=== PATIENT | female | born 1935 | race Caucasian/White ===

== ENCOUNTER 2017-09-18 16:12 | Inpatient (IN) ==
[2017-09-18] MEDS ORDERED: GLUCAGON 1 MG VIAL IM PRN (16:16)
[2017-09-18] MEDS ORDERED: MORPHINE 10 MG/1 ML VIAL IV PRN (16:16)
[2017-09-18] MEDS ORDERED: ONDANSETRON 4 MG/2 ML VIAL IV PRN (16:16)
[2017-09-18] MEDS ORDERED: ACETAMINOPHEN 325 MG TABLET PO PRN (16:16)
[2017-09-18] MEDS ORDERED: MAGNESIUM SULF RIDER 4 GM in PREMIX 1 EACH IV PRN (16:16)
[2017-09-18] MEDS ORDERED: DEXTROSE 50% 25 GM/50 ML VIAL IV PRN (16:16)
[2017-09-18 17:42] LABS: Basophils # 0.1 10*3/uL (0.0-0.2); Basophils % 0.8 % (0.0-0.8); Eosinophils # 0.2 10*3/uL (0.0-0.87); Eosinophils % 2.4 % (0.00-10.9); Hematocrit 31.6 VOL% (35.7-47.0); Hemoglobin 9.7 GM/DL (12.0-16.0); Immature Granulocytes % 0.4 %; Immature Granulocytes Absolute 0.03 #; Lymphocytes # 1.9 10*3/uL (1.4-4.0); Lymphocytes % 24.9 % (21.3-54.2); Mean Corpuscular HGB Conc 30.7 GM/DL (32-36); Mean Corpuscular Hemoglobin 27 PG (27-34); Mean Corpuscular Volume 88.8 FL (87-102); Mean Platelet Volume 11.4 FL (9.6-12.0); Monocytes # 0.6 10*3/uL (0.11-0.8); Neutrophils # 4.8 10*3/uL (1.4-7.4); Neutrophils % 63.5 % (38.7-73.9); Platelet Count 256 T/CUMM (130-400); Red Blood Count 3.56 MC/CUMM (3.8-5.5); White Blood Count 7.6 T/CUMM (4-12)
[2017-09-18 18:05] LABS: Bilirubin,Total 0.5 MG/DL (0.2-1.0); Calcium 9.7 MG/DL (8.5-10.1); Magnesium 1.3 MG/DL (1.8-2.4); Osmolality,Calculated 277.4 MOS/KG (273-304); Total Protein 7.2 G/DL (6.4-8.3)
[2017-09-18 18:08] LABS: Troponin I Only 0.021 NG/ML (0.00-0.045)
[2017-09-18] MEDS: INSULIN LISPRO 100 UNIT/ML SUBCUT SCH ×2 (18:11→21:52)
[2017-09-18 19:40] LABS: Troponin I Only 0.024 NG/ML (0.00-0.045)
[2017-09-18] MEDS: ENOXAPARIN 30 MG/0.3 ML SYRINGE SUBCUT SCH (21:45)
[2017-09-18] MEDS: CARVEDILOL 3.125 MG TABLET PO SCH (21:52)
[2017-09-18] MEDS: DOCUSATE SODIUM 100 MG CAPSULE PO SCH (21:52)
[2017-09-18] MEDS: GABAPENTIN 300 MG CAPSULE PO SCH (21:53)
[2017-09-18] MEDS: MAGNESIUM CHLORIDE 64 MG TABLET PO SCH (21:53)
[2017-09-18 23:19] LABS: Troponin I Only 0.034 NG/ML (0.00-0.045)
[2017-09-18] MEDS ORDERED: FUROSEMIDE 40 MG/4 ML VIAL IV ONE (23:24)
[2017-09-18] MEDS ORDERED: FUROSEMIDE 40 MG/4 ML VIAL ONE (23:26)
[2017-09-18] MEDS: MAGNESIUM SULF RIDER 2 GM in PREMIX 1 EACH IV PRN (23:32)
[2017-09-19] MEDS: ALBUTEROL/IPRATROPIUM 3 ML NEB RESP TX SCH ×4 (00:48→19:40)
[2017-09-19 01:31] LABS: Apearance,Urine CLEAR (Clear); Bacteria,Urine Occasional /HPF (Few); Bilirubin,Urine Negative (Negative); Blood, Urine Negative (Negative); Glucose,Urine (UA) Negative (Negative); Ketones,Urine Negative (Negative); Nitrite,Urine Negative (Negative); Protein,Urine Negative; RBC,Urine <1 /HPF (0-4); Urine Color Straw (Yellow); Urine Specific Gravity 1.004 (1.001-1.035); Urine Urobilinogen < 2.0 EU/DL (0.2-1.0); WBC,Urine 1 /HPF (0-6)
[2017-09-19] MEDS: MAGNESIUM SULF RIDER 2 GM in PREMIX 1 EACH IV PRN (01:32)
[2017-09-19] MEDS: LEVOTHYROXINE 75 MCG TABLET PO SCH (05:49)
[2017-09-19 05:53] LABS: Calcium 8.9 MG/DL (8.5-10.1); Osmolality,Calculated 280.4 MOS/KG (273-304); Potassium 3.8 MMOL/L (3.5-5.1); Risk Ratio 3.36; Thyroid Stimulating Hormone 0.975 uIU/ml (0.358-3.74); VLDL CHOLESTEROL 38.8 MG/DL
[2017-09-19] MEDS ORDERED: GLIMEPIRIDE 4 MG TABLET PO SCH (08:00)
[2017-09-19] MEDS: LISINOPRIL 2.5 MG TABLET PO SCH (11:30)
[2017-09-19] MEDS: PARoxetine 10 MG TABLET PO SCH (11:30)
[2017-09-19] MEDS: hydroCHLOROthiazide 12.5 MG CAPSULE PO SCH (11:30)
[2017-09-19] MEDS: amLODIPine 10 MG TABLET PO SCH (11:30)
[2017-09-19] MEDS: ASPIRIN CHEW 81 MG TABLET PO SCH (11:31)
[2017-09-19] MEDS: GABAPENTIN 300 MG CAPSULE PO SCH ×2 (11:32→21:29)
[2017-09-19] MEDS: SPIRONOLACTONE 25 MG TABLET PO SCH (11:32)
[2017-09-19] MEDS: PANTOPRAZOLE 40 MG TABLET PO SCH (11:32)
[2017-09-19] MEDS: INSULIN LISPRO 100 UNIT/ML SUBCUT SCH ×4 (11:33→21:21)
[2017-09-19] MEDS: CARVEDILOL 3.125 MG TABLET PO SCH (11:33)
[2017-09-19] MEDS: DOCUSATE SODIUM 100 MG CAPSULE PO SCH ×2 (11:33→21:31)
[2017-09-19] MEDS: FUROSEMIDE 40 MG/4 ML VIAL IV SCH ×2 (11:34→16:36)
[2017-09-19] MEDS: MAGNESIUM CHLORIDE 64 MG TABLET PO SCH ×2 (11:38→21:20)
[2017-09-19] MEDS: CARVEDILOL 6.25 MG TABLET PO SCH (21:29)
[2017-09-19] MEDS: ENOXAPARIN 30 MG/0.3 ML SYRINGE SUBCUT SCH (21:29)
[2017-09-19] MEDS: ATORVASTATIN 20 MG TABLET PO SCH (21:29)
[2017-09-20] MEDS: ALBUTEROL/IPRATROPIUM 3 ML NEB RESP TX SCH ×4 (00:06→19:53)
[2017-09-20 06:32] LABS: Calcium 8.6 MG/DL (8.5-10.1); Osmolality,Calculated 274.7 MOS/KG (273-304); Potassium 3.7 MMOL/L (3.5-5.1)
[2017-09-20] MEDS: LEVOTHYROXINE 75 MCG TABLET PO SCH (06:42)
[2017-09-20] MEDS: INSULIN LISPRO 100 UNIT/ML SUBCUT SCH ×4 (09:45→21:34)
[2017-09-20] MEDS: amLODIPine 10 MG TABLET PO SCH (09:46)
[2017-09-20] MEDS: hydroCHLOROthiazide 12.5 MG CAPSULE PO SCH (09:46)
[2017-09-20] MEDS: ASPIRIN CHEW 81 MG TABLET PO SCH (09:47)
[2017-09-20] MEDS: GABAPENTIN 300 MG CAPSULE PO SCH ×2 (09:47→21:35)
[2017-09-20] MEDS: LISINOPRIL 2.5 MG TABLET PO SCH (09:47)
[2017-09-20] MEDS: DOCUSATE SODIUM 100 MG CAPSULE PO SCH ×2 (09:47→21:35)
[2017-09-20] MEDS: MAGNESIUM CHLORIDE 64 MG TABLET PO SCH ×2 (09:47→21:35)
[2017-09-20] MEDS: CARVEDILOL 6.25 MG TABLET PO SCH ×2 (09:47→21:35)
[2017-09-20] MEDS: PARoxetine 10 MG TABLET PO SCH (09:47)
[2017-09-20] MEDS: SPIRONOLACTONE 25 MG TABLET PO SCH (09:48)
[2017-09-20] MEDS: GLIMEPIRIDE 2 MG TABLET PO SCH (09:48)
[2017-09-20] MEDS: FUROSEMIDE 40 MG TABLET PO SCH (09:52)
[2017-09-20] MEDS: PANTOPRAZOLE 40 MG TABLET PO SCH (09:52)
[2017-09-20] MEDS: ENOXAPARIN 30 MG/0.3 ML SYRINGE SUBCUT SCH (21:35)
[2017-09-20] MEDS: ATORVASTATIN 20 MG TABLET PO SCH (21:35)
[2017-09-21] MEDS: ALBUTEROL/IPRATROPIUM 3 ML NEB RESP TX SCH ×2 (00:24→07:31)
[2017-09-21 05:41] LABS: Basophils % 0.4 % (0.0-0.8); Eosinophils # 0.5 10*3/uL (0.0-0.87); Eosinophils % 7.5 % (0.00-10.9); Hematocrit 28.7 VOL% (35.7-47.0); Hemoglobin 9.3 GM/DL (12.0-16.0); Immature Granulocytes % 0.1 %; Immature Granulocytes Absolute 0.01 #; Lymphocytes # 1.9 10*3/uL (1.4-4.0); Lymphocytes % 27.2 % (21.3-54.2); Mean Corpuscular HGB Conc 32.4 GM/DL (32-36); Mean Corpuscular Hemoglobin 28 PG (27-34); Mean Corpuscular Volume 84.9 FL (87-102); Mean Platelet Volume 11.4 FL (9.6-12.0); Monocytes # 0.8 10*3/uL (0.11-0.8); Monocytes % 11.6 % (1.7-12.7); Neutrophils # 3.7 10*3/uL (1.4-7.4); Neutrophils % 53.2 % (38.7-73.9); Platelet Count 228 T/CUMM (130-400); Red Blood Count 3.38 MC/CUMM (3.8-5.5); Red Cell Distribution Width 14.5 % (9.3-17.3)
[2017-09-21 06:05] LABS: Calcium 8.3 MG/DL (8.5-10.1); Potassium 4.1 MMOL/L (3.5-5.1)
[2017-09-21 06:07] LABS: Calcium 8.4 MG/DL (8.5-10.1); Magnesium 1.7 MG/DL (1.8-2.4); Potassium 4.1 MMOL/L (3.5-5.1)
[2017-09-21] MEDS: LEVOTHYROXINE 75 MCG TABLET PO SCH (06:41)
[2017-09-21] MEDS: INSULIN LISPRO 100 UNIT/ML SUBCUT SCH ×2 (08:48→12:38)
[2017-09-21] MEDS: PARoxetine 10 MG TABLET PO SCH (08:50)
[2017-09-21] MEDS: ASPIRIN CHEW 81 MG TABLET PO SCH (08:50)
[2017-09-21] MEDS: MAGNESIUM CHLORIDE 64 MG TABLET PO SCH (08:50)
[2017-09-21] MEDS: hydroCHLOROthiazide 12.5 MG CAPSULE PO SCH (08:50)
[2017-09-21] MEDS: LISINOPRIL 2.5 MG TABLET PO SCH (08:50)
[2017-09-21] MEDS: GABAPENTIN 300 MG CAPSULE PO SCH (08:50)
[2017-09-21] MEDS: DOCUSATE SODIUM 100 MG CAPSULE PO SCH (08:50)
[2017-09-21] MEDS: FUROSEMIDE 40 MG TABLET PO SCH (08:50)
[2017-09-21] MEDS: SPIRONOLACTONE 25 MG TABLET PO SCH (08:51)
[2017-09-21] MEDS: GLIMEPIRIDE 2 MG TABLET PO SCH (08:51)
[2017-09-21] MEDS: CARVEDILOL 6.25 MG TABLET PO SCH (08:51)
[2017-09-21] MEDS: amLODIPine 10 MG TABLET PO SCH (08:51)
[2017-09-21] MEDS: PANTOPRAZOLE 40 MG TABLET PO SCH (08:52)
[2017-09-21 12:48] VITALS: BP 135/65
== END 2017-09-21 13:07 | disposition home or self-care (01) | DRG 293 ==
LOC: N.TELEN 16:33
PROVIDERS: ADMIT Family Medicine; ATTEND Family Medicine

== ENCOUNTER 2019-03-25 17:51 | Inpatient (IN) ==
[2019-03-25] MEDS ORDERED: SODIUM CHLORIDE 0.9% 500 ML IV STA (18:16)
[2019-03-25 18:29] LABS: Basophils # 0.1 10*3/uL (0.0-0.2); Basophils % 0.8 % (0.0-0.8); Eosinophils # 0.4 10*3/uL (0.0-0.87); Eosinophils % 4.5 % (0.00-10.9); Hematocrit 33.6 VOL% (35.7-47.0); Hemoglobin 10.7 GM/DL (12.0-16.0); Immature Granulocytes % 0.7 %; Immature Granulocytes Absolute 0.06 #; Lymphocytes # 2.1 10*3/uL (1.4-4.0); Lymphocytes % 23.7 % (21.3-54.2); Mean Corpuscular HGB Conc 31.8 GM/DL (32-36); Mean Corpuscular Volume 89.4 FL (87-102); Mean Platelet Volume 11.7 FL (9.6-12.0); Monocytes % 8.9 % (1.7-12.7); Neutrophils % 61.4 % (38.7-73.9); Platelet Count 193 T/CUMM (130-400); Red Blood Count 3.76 MC/CUMM (3.8-5.5); Red Cell Distribution Width 15.9 % (9.3-17.3); White Blood Count 8.7 T/CUMM (4-12)
[2019-03-25 18:55] LABS: Alanine Aminotransferase 29 U/L (13-56); Albumin 3.3 G/DL (3.4-5.0); Alkaline Phosphatase 110 U/L (45-117); Amylase 47 U/L (25-115); Aspartate Amino Transferase 21 U/L (0-37); Bilirubin,Total < 0.39 MG/DL (0.2-1.0); Blood Urea Nitrogen 36 MG/DL (7-18); Glucose 120 MG/DL (74-106); Osmolality,Calculated 285.5 MOS/KG (273-304); Total Protein 7.1 G/DL (6.4-8.3)
[2019-03-25 18:56] LABS: Troponin I 0.196 NG/ML (0.00-0.045)
[2019-03-25] MEDS ORDERED: MAGNESIUM SULF RIDER 2 GM in PREMIX 1 EACH IV STA (19:09)
[2019-03-25] MEDS ORDERED: ENOXAPARIN 80 MG/0.8 ML SYRINGE SUBCUT STA (19:15)
[2019-03-25] MEDS ORDERED: ACETAMINOPHEN 325 MG TABLET PO PRN ×2 (19:44)
[2019-03-25] MEDS ORDERED: GLUCAGON 1 MG VIAL IM PRN (19:44)
[2019-03-25] MEDS ORDERED: DEXTROSE 50% 25 GM/50 ML VIAL IV PRN (19:44)
[2019-03-25] MEDS ORDERED: MORPHINE 4 MG/1 ML VIAL IV PRN (19:44)
[2019-03-25] MEDS ORDERED: ALBUTEROL 2.5 MG/3 ML NEB RESP TX PRN (19:44)
[2019-03-25] MEDS ORDERED: ONDANSETRON 4 MG/2 ML VIAL IV PRN (19:44)
[2019-03-25] MEDS ORDERED: ALBUTEROL 0.63 MG/3 ML NEB RESP TX PRN (19:44)
[2019-03-25] MEDS ORDERED: ENOXAPARIN 80 MG/0.8 ML SYRINGE SUBCUT ONE (19:54)
[2019-03-25] MEDS ORDERED: MAGNESIUM SULF RIDER 50 ML IV ONE (19:59)
[2019-03-25 20:03] LABS: Apearance,Urine Slightly Hazy (Clear); Bacteria,Urine Many /HPF (Few); Bilirubin,Urine Negative (Negative); Blood, Urine Negative (Negative); Glucose,Urine (UA) Negative (Negative); Hyaline Casts,Urine 3 /LPF (0-3); Ketones,Urine Negative (Negative); Mucus,Urine Occasional /LPF (Occasional); Nitrite,Urine Negative (Negative); Protein,Urine Negative; Squamous Epithelial Cell,Urine Occasional /HPF (0-10); Urine Color Yellow (Yellow); Urine Specific Gravity 1.013 (1.001-1.035); Urine Urobilinogen < 2.0 EU/DL (0.2-1.0); WBC,Urine 2 /HPF (0-6)
[2019-03-25] MEDS ORDERED: hydrALAZINE 20 MG/1 ML VIAL IV PRN (22:26)
[2019-03-25] MEDS: ATORVASTATIN 20 MG TABLET PO SCH (22:46)
[2019-03-25] MEDS: SODIUM CHLORIDE 0.9% 1,000 ML IV SCH (22:49)
[2019-03-25] MEDS: ENOXAPARIN 30 MG/0.3 ML SYRINGE SUBCUT SCH (22:50)
[2019-03-25] MEDS: DOCUSATE SODIUM 100 MG CAPSULE PO SCH (22:50)
[2019-03-26] MEDS: INSULIN REGULAR 100 UNIT/ML SUBCUT SCH ×5 (00:41→23:20)
[2019-03-26 05:28] LABS: Basophils # 0.1 10*3/uL (0.0-0.2); Basophils % 0.7 % (0.0-0.8); Eosinophils # 0.3 10*3/uL (0.0-0.87); Eosinophils % 4.3 % (0.00-10.9); Hematocrit 29.1 VOL% (35.7-47.0); Hemoglobin 9.3 GM/DL (12.0-16.0); Immature Granulocytes % 0.5 %; Immature Granulocytes Absolute 0.04 #; Lymphocytes # 2.1 10*3/uL (1.4-4.0); Lymphocytes % 29.1 % (21.3-54.2); Mean Corpuscular Volume 90.1 FL (87-102); Monocytes % 8.5 % (1.7-12.7); Neutrophils % 56.9 % (38.7-73.9); Platelet Count 160 T/CUMM (130-400); Red Blood Count 3.23 MC/CUMM (3.8-5.5); Red Cell Distribution Width 15.8 % (9.3-17.3); White Blood Count 7.3 T/CUMM (4-12)
[2019-03-26 05:46] LABS: Alanine Aminotransferase 26 U/L (13-56); Albumin 2.8 G/DL (3.4-5.0); Alkaline Phosphatase 89 U/L (45-117); Aspartate Amino Transferase 19 U/L (0-37); Bilirubin,Total < 0.39 MG/DL (0.2-1.0); Blood Urea Nitrogen 31 MG/DL (7-18); Calcium 8.5 MG/DL (8.5-10.1); Glucose 100 MG/DL (74-106); HDL Cholesterol 33 MG/DL (40-60); Osmolality,Calculated 289.1 MOS/KG (273-304); Risk Ratio 5.94; Total Protein 5.7 G/DL (6.4-8.3); Triglycerides 649 MG/DL (2-150); VLDL CHOLESTEROL 129.8 MG/DL
[2019-03-26] MEDS: LEVOTHYROXINE 100 MCG TABLET PO SCH (06:14)
[2019-03-26] MEDS ORDERED: PANTOPRAZOLE 40 MG TABLET PO SCH (09:00)
[2019-03-26] MEDS ORDERED: Fluticasone-Umeclidin-Vilanter [Trelegy Ellipta] INH SCH (09:00)
[2019-03-26 09:19] LABS: Troponin I 0.142 NG/ML (0.00-0.045)
[2019-03-26] MEDS: DOCUSATE SODIUM 100 MG CAPSULE PO SCH ×2 (09:38→21:26)
[2019-03-26] MEDS: CITALOPRAM 20 MG TABLET PO SCH (09:40)
[2019-03-26] MEDS: MAGNESIUM CHLORIDE 64 MG TABLET PO SCH (09:40)
[2019-03-26] MEDS: amLODIPine 5 MG TABLET PO SCH (09:41)
[2019-03-26] MEDS: PANTOPRAZOLE 40 MG TABLET PO SCH (09:41)
[2019-03-26] MEDS: hydroCHLOROthiazide 25 MG TABLET PO SCH (09:41)
[2019-03-26] MEDS: GLIMEPIRIDE 2 MG TABLET PO SCH (09:41)
[2019-03-26] MEDS: MULTIVITAMIN (CENTRUM) TABLET PO SCH (09:41)
[2019-03-26] MEDS: LOSARTAN 50 MG TABLET PO SCH (09:42)
[2019-03-26] MEDS: METOPROLOL TARTRATE 25 MG TABLET PO SCH (09:42)
[2019-03-26] MEDS: ASPIRIN EC 81 MG TABLET PO SCH (10:05)
[2019-03-26] MEDS: SODIUM CHLORIDE 0.9% 1,000 ML IV SCH ×2 (11:44→23:19)
[2019-03-26 12:14] LABS: Troponin I 0.093 NG/ML (0.00-0.045)
[2019-03-26 14:54] LABS: Troponin I 0.118 NG/ML (0.00-0.045)
[2019-03-26 19:14] LABS: Troponin I 0.096 NG/ML (0.00-0.045)
[2019-03-26] MEDS ORDERED: MAGNESIUM CHLORIDE 64 MG TABLET PO SCH (21:00)
[2019-03-26] MEDS: ENOXAPARIN 30 MG/0.3 ML SYRINGE SUBCUT SCH (21:28)
[2019-03-26] MEDS: ATORVASTATIN 20 MG TABLET PO SCH (21:29)
[2019-03-27] MEDS: LEVOTHYROXINE 100 MCG TABLET PO SCH (06:25)
[2019-03-27] MEDS: INSULIN REGULAR 100 UNIT/ML SUBCUT SCH ×2 (06:27→12:00)
[2019-03-27 08:36] LABS: Basophils # 0.1 10*3/uL (0.0-0.2); Basophils % 0.9 % (0.0-0.8); Eosinophils # 0.3 10*3/uL (0.0-0.87); Eosinophils % 4.8 % (0.00-10.9); Hematocrit 31.9 VOL% (35.7-47.0); Hemoglobin 10.1 GM/DL (12.0-16.0); Immature Granulocytes % 0.4 %; Immature Granulocytes Absolute 0.03 #; Lymphocytes # 1.3 10*3/uL (1.4-4.0); Lymphocytes % 19.7 % (21.3-54.2); Mean Corpuscular HGB Conc 31.7 GM/DL (32-36); Mean Corpuscular Volume 88.6 FL (87-102); Mean Platelet Volume 11.2 FL (9.6-12.0); Monocytes % 9.6 % (1.7-12.7); Neutrophils % 64.6 % (38.7-73.9); Platelet Count 163 T/CUMM (130-400); Red Cell Distribution Width 15.8 % (9.3-17.3); White Blood Count 6.7 T/CUMM (4-12)
[2019-03-27 08:55] LABS: Calcium 8.8 MG/DL (8.5-10.1); Osmolality,Calculated 286.1 MOS/KG (273-304)
[2019-03-27] MEDS ORDERED: FENOFIBRATE 145 MG TABLET PO SCH (09:00)
[2019-03-27] MEDS: hydroCHLOROthiazide 25 MG TABLET PO SCH (09:16)
[2019-03-27] MEDS: ASPIRIN EC 81 MG TABLET PO SCH (09:16)
[2019-03-27] MEDS: amLODIPine 5 MG TABLET PO SCH (09:16)
[2019-03-27] MEDS: METOPROLOL TARTRATE 25 MG TABLET PO SCH (09:16)
[2019-03-27] MEDS: MAGNESIUM CHLORIDE 64 MG TABLET PO SCH (09:16)
[2019-03-27] MEDS: LOSARTAN 50 MG TABLET PO SCH (09:16)
[2019-03-27] MEDS: MULTIVITAMIN (CENTRUM) TABLET PO SCH (09:16)
[2019-03-27] MEDS: PANTOPRAZOLE 40 MG TABLET PO SCH (09:16)
[2019-03-27] MEDS: CITALOPRAM 20 MG TABLET PO SCH (09:16)
[2019-03-27] MEDS: GLIMEPIRIDE 2 MG TABLET PO SCH (09:16)
[2019-03-27] MEDS: DOCUSATE SODIUM 100 MG CAPSULE PO SCH (09:17)
[2019-03-27] MEDS ORDERED: amLODIPine 5 MG TABLET PO SCH (10:45)
[2019-03-27 16:19] VITALS: BP 153/68
[2019-03-28] MEDS ORDERED: amLODIPine 10 MG TABLET PO SCH (09:00)
== END 2019-03-27 17:15 | disposition home or self-care (01) | DRG 312 ==
LOC: N.ED 17:51 → N.EDINP 19:22 → N.TELEN 19:38
PROVIDERS: ADMIT Family Medicine; ATTEND Family Medicine

== ENCOUNTER 2019-11-12 06:41 | Inpatient (IN) ==
[2019-11-12] MEDS ORDERED: SODIUM CHLORIDE 0.9% 1,000 ML IV STA (07:04)
[2019-11-12] MEDS ORDERED: ONDANSETRON 4 MG/2 ML VIAL IV STA (07:04)
[2019-11-12 07:59] LABS: Basophils # 0.1 10*3/uL (0.0-0.2); Basophils % 0.5 % (0.0-0.8); Eosinophils # 0.2 10*3/uL (0.0-0.87); Eosinophils % 2.1 % (0.00-10.9); Hematocrit 34.6 VOL% (35.7-47.0); Hemoglobin 10.8 GM/DL (12.0-16.0); Immature Granulocytes % 0.5 %; Immature Granulocytes Absolute 0.05 #; Lymphocytes # 0.9 10*3/uL (1.4-4.0); Lymphocytes % 9.3 % (21.3-54.2); Mean Corpuscular HGB Conc 31.2 GM/DL (32-36); Mean Corpuscular Volume 88.9 FL (87-102); Mean Platelet Volume 11.3 FL (9.6-12.0); Monocytes % 7.6 % (1.7-12.7); Platelet Count 226 T/CUMM (130-400); Red Blood Count 3.89 MC/CUMM (3.8-5.5); Red Cell Distribution Width 14.7 % (9.3-17.3); White Blood Count 9.2 T/CUMM (4-12)
[2019-11-12 08:07] LABS: Apearance,Urine CLEAR (Clear); Bilirubin,Urine Negative (Negative); Blood, Urine Negative (Negative); Glucose,Urine (UA) 50 mg/dL (Negative); Ketones,Urine Negative (Negative); Mucus,Urine Occasional /LPF (Occasional); Nitrite,Urine Negative (Negative); Protein,Urine Negative; RBC,Urine <1 /HPF (0-4); Squamous Epithelial Cell,Urine Occasional /HPF (0-10); Urine Color Straw (Yellow); Urine Specific Gravity 1.009 (1.001-1.035); Urine Urobilinogen < 2.0 EU/DL (0.2-1.0)
[2019-11-12 08:33] LABS: Albumin 3.4 G/DL (3.4-5.0); Bilirubin,Total 0.4 MG/DL (0.2-1.0); Calcium 8.4 MG/DL (8.5-10.1); Total Protein 6.7 G/DL (6.4-8.3)
[2019-11-12] MEDS ORDERED: PIPERACILLIN/TAZOBACTAM 3,375 MG in SODIUM CHLORIDE 0.9% 100 ML IV STA (09:40)
[2019-11-12] MEDS ORDERED: ACETAMINOPHEN 325 MG TABLET PO PRN (10:52)
[2019-11-12] MEDS ORDERED: ONDANSETRON 4 MG/2 ML VIAL IV PRN (10:52)
[2019-11-12] MEDS: SODIUM CHLORIDE 0.9% 1,000 ML IV SCH ×2 (11:10→19:28)
[2019-11-12] MEDS ORDERED: MAGNESIUM SULF RIDER 4 GM in PREMIX 1 EACH IV ONE (20:55)
[2019-11-12] MEDS: DOCUSATE SODIUM 100 MG CAPSULE PO SCH (21:02)
[2019-11-13 06:01] LABS: Basophils % 0.6 % (0.0-0.8); Eosinophils # 0.2 10*3/uL (0.0-0.87); Eosinophils % 3.5 % (0.00-10.9); Hematocrit 32.4 VOL% (35.7-47.0); Hemoglobin 9.9 GM/DL (12.0-16.0); Immature Granulocytes % 0.4 %; Immature Granulocytes Absolute 0.03 #; Lymphocytes # 1.1 10*3/uL (1.4-4.0); Lymphocytes % 16.3 % (21.3-54.2); Mean Corpuscular HGB Conc 30.6 GM/DL (32-36); Monocytes % 8.2 % (1.7-12.7); Platelet Count 240 T/CUMM (130-400); Red Cell Distribution Width 14.7 % (9.3-17.3); White Blood Count 6.9 T/CUMM (4-12)
[2019-11-13 06:33] LABS: Bilirubin,Total 0.6 MG/DL (0.2-1.0); Osmolality,Calculated 281.4 MOS/KG (273-304); Total Protein 6.3 G/DL (6.4-8.3)
[2019-11-13] MEDS: SODIUM CHLORIDE 0.9% 1,000 ML IV SCH ×2 (07:30→15:55)
[2019-11-13] MEDS ORDERED: ALBUTEROL 0.63 MG/3 ML NEB RESP TX PRN (07:36)
[2019-11-13] MEDS ORDERED: GLUCAGON 1 MG VIAL IM PRN (08:05)
[2019-11-13] MEDS ORDERED: DEXTROSE 50% 25 GM/50 ML VIAL IV PRN (08:05)
[2019-11-13] MEDS: FENOFIBRATE 145 MG TABLET PO SCH (08:33)
[2019-11-13] MEDS: MAGNESIUM CHLORIDE 64 MG TABLET PO SCH ×2 (08:33→22:24)
[2019-11-13] MEDS: MULTIVITAMIN (CENTRUM) TABLET PO SCH (08:34)
[2019-11-13] MEDS: DOCUSATE SODIUM 100 MG CAPSULE PO SCH ×2 (08:34→22:24)
[2019-11-13] MEDS: OMEGA 3 ACID ETHYL ESTERS 1 GM CAPSULE PO SCH (08:34)
[2019-11-13] MEDS: LOSARTAN 50 MG TABLET PO SCH ×2 (08:34→22:24)
[2019-11-13] MEDS: ASPIRIN EC 81 MG TABLET PO SCH (08:34)
[2019-11-13] MEDS: CITALOPRAM 20 MG TABLET PO SCH (08:34)
[2019-11-13] MEDS: LEVOTHYROXINE 100 MCG TABLET PO SCH (08:34)
[2019-11-13] MEDS: GLIMEPIRIDE 2 MG TABLET PO SCH (08:34)
[2019-11-13] MEDS: PANTOPRAZOLE 40 MG TABLET PO SCH (08:34)
[2019-11-13] MEDS ORDERED: NF- (Fluticasone-Umeclidin-Vilanter [Trelegy Ellipta] 1 inh) INH SCH (09:00)
[2019-11-13] MEDS ORDERED: hydroCHLOROthiazide 25 MG TABLET PO SCH (09:00)
[2019-11-13] MEDS: INSULIN LISPRO 100 UNIT/ML SUBCUT SCH ×3 (13:32→22:32)
[2019-11-13] MEDS ORDERED: methylPREDNISolone SOD SUC 125 MG/2 ML VIAL ONE (19:47)
[2019-11-13] MEDS ORDERED: LEVALBUTEROL 1.25 MG/3 ML NEB RESP TX ONE (19:47)
[2019-11-13] MEDS ORDERED: MORPHINE 4 MG/1 ML VIAL ONE (19:49)
[2019-11-13] MEDS ORDERED: methylPREDNISolone SOD SUC 125 MG/2 ML VIAL IV ONE (19:50)
[2019-11-13] MEDS ORDERED: MORPHINE 4 MG/1 ML VIAL IV ONE (19:51)
[2019-11-13] MEDS ORDERED: ONDANSETRON 4 MG/2 ML VIAL IV ONE (19:51)
[2019-11-13] MEDS ORDERED: FUROSEMIDE 40 MG/4 ML VIAL IV ONE ×2 (19:54→20:32)
[2019-11-13] MEDS ORDERED: ALBUTEROL/IPRATROPIUM 3 ML NEB RESP TX ONE (19:58)
[2019-11-13] MEDS ORDERED: ETOMIDATE 20 MG/10 ML VIAL IV ONE ×2 (20:16→22:55)
[2019-11-13] MEDS ORDERED: SUCCINYLCHOLINE 200 MG/10 ML VIAL ONE (20:17)
[2019-11-13] MEDS ORDERED: MORPHINE 4 MG/1 ML VIAL IV PRN (20:35)
[2019-11-13 20:36] LABS: ABG Base Excess -15.1 MMOL/L (-2.5-2.5); ABG Oxygen Saturation 93.7 % (95-100); ABG TCO2 18.1 MMOL/L (23-27)
[2019-11-13 20:37] LABS: ABG PCO2 78.2 MM HG (35-48)
[2019-11-13 20:52] LABS: Calcium 8.3 MG/DL (8.5-10.1)
[2019-11-13] MEDS ORDERED: ENOXAPARIN 80 MG/0.8 ML SYRINGE SUBCUT SCH (21:00)
[2019-11-13 21:15] LABS: ABG Base Excess -10.3 MMOL/L (-2.5-2.5); ABG PCO2 55.3 MM HG (35-48); ABG PO2 269.5 MM HG (80-95); ABG TCO2 20.7 MMOL/L (23-27); Allen Test Positive; Pt O2 Delivery Device Ventilator
[2019-11-13 21:25] LABS: ABG PH 7.153 (7.35-7.45)
[2019-11-13] MEDS ORDERED: SODIUM BICARBONATE 50 MEQ/50 ML VIAL IV ONE (21:30)
[2019-11-13] MEDS: MIDAZOLAM 100 MG in SODIUM CHLORIDE 0.9% 80 ML IV PRN (21:33)
[2019-11-13] MEDS ORDERED: ALBUTEROL/IPRATROPIUM 3 ML NEB RESP TX SCH (22:00)
[2019-11-13] MEDS: ATORVASTATIN 20 MG TABLET PO SCH (22:24)
[2019-11-13] MEDS: CLOPIDOGREL 75 MG TABLET PO SCH (22:24)
[2019-11-13] MEDS ORDERED: SUCCINYLCHOLINE 200 MG/10 ML VIAL IV ONE (22:55)
[2019-11-13 22:58] LABS: CKMB % 3.6 %; Troponin I 0.784 NG/ML (0.00-0.045)
[2019-11-14 00:01] LABS: CKMB % 7.2 %
[2019-11-14 00:02] LABS: Troponin I 4.89 NG/ML (0.00-0.045)
[2019-11-14] MEDS: SODIUM CHLORIDE 0.9% 1,000 ML IV SCH ×2 (00:50→08:02)
[2019-11-14 03:18] LABS: ABG Base Excess -2.4 MMOL/L (-2.5-2.5); ABG HCO3 22.5 MMOL/L (20-26); ABG Oxygen Saturation 99.8 % (95-100); ABG PCO2 40.8 MM HG (35-48); ABG PH 7.358 (7.35-7.45); ABG TCO2 20.9 MMOL/L (23-27); Allen Test Positive; Pt O2 Delivery Device Ventilator
[2019-11-14 06:10] LABS: Troponin I 25.5 NG/ML (0.00-0.045)
[2019-11-14] MEDS: INSULIN LISPRO 100 UNIT/ML SUBCUT SCH ×4 (08:47→17:06)
[2019-11-14] MEDS: LOSARTAN 50 MG TABLET PO SCH (08:50)
[2019-11-14] MEDS: MULTIVITAMIN (CENTRUM) TABLET PO SCH (08:50)
[2019-11-14] MEDS: PANTOPRAZOLE 40 MG TABLET PO SCH (08:50)
[2019-11-14] MEDS: ASPIRIN EC 81 MG TABLET PO SCH (08:50)
[2019-11-14] MEDS: MAGNESIUM CHLORIDE 64 MG TABLET PO SCH ×2 (08:50→20:42)
[2019-11-14] MEDS: LEVOTHYROXINE 100 MCG TABLET PO SCH (08:50)
[2019-11-14] MEDS: FENOFIBRATE 145 MG TABLET PO SCH (08:50)
[2019-11-14] MEDS: GLIMEPIRIDE 2 MG TABLET PO SCH (08:51)
[2019-11-14] MEDS: CITALOPRAM 20 MG TABLET PO SCH (08:51)
[2019-11-14] MEDS: DOCUSATE SODIUM 100 MG CAPSULE PO SCH (08:52)
[2019-11-14] MEDS: OMEGA 3 ACID ETHYL ESTERS 1 GM CAPSULE PO SCH (08:52)
[2019-11-14] MEDS ORDERED: FUROSEMIDE 40 MG/4 ML VIAL IV SCH (09:00)
[2019-11-14] MEDS: methylPREDNISolone SOD SUC 40 MG/1 ML VIAL IV SCH ×2 (10:09→20:41)
[2019-11-14 10:48] LABS: CKMB % 8.1 %
[2019-11-14 10:51] LABS: Troponin I 26.9 NG/ML (0.00-0.045)
[2019-11-14] MEDS: MIDAZOLAM 100 MG in SODIUM CHLORIDE 0.9% 80 ML IV PRN (11:52)
[2019-11-14 12:20] LABS: CKMB % 7.6 %
[2019-11-14 12:24] LABS: Troponin I 33.7 NG/ML (0.00-0.045)
[2019-11-14] MEDS: carvediloL 3.125 MG TABLET PO SCH ×2 (12:36→20:42)
[2019-11-14 14:59] LABS: CKMB % 6.2 %
[2019-11-14 15:03] LABS: Troponin I 27.7 NG/ML (0.00-0.045)
[2019-11-14] MEDS: ENOXAPARIN 80 MG/0.8 ML SYRINGE SUBCUT SCH (20:41)
[2019-11-14] MEDS: CLOPIDOGREL 75 MG TABLET PO SCH (20:42)
[2019-11-14] MEDS: DOCUSATE SODIUM 100 MG/10 ML UDCUP PO SCH (20:42)
[2019-11-14] MEDS: ATORVASTATIN 20 MG TABLET PO SCH (20:42)
[2019-11-15] MEDS: INSULIN LISPRO 100 UNIT/ML SUBCUT SCH ×4 (00:03→18:12)
[2019-11-15 03:55] LABS: ABG Base Excess 0.2 MMOL/L (-2.5-2.5); ABG HCO3 24.7 MMOL/L (20-26); ABG Oxygen Saturation 99.4 % (95-100); ABG PCO2 34.9 MM HG (35-48); ABG PH 7.444 (7.35-7.45); ABG TCO2 21.7 MMOL/L (23-27); Allen Test Positive; Pt O2 Delivery Device Ventilator
[2019-11-15 05:02] LABS: Basophils % 0.1 % (0.0-0.8); Hematocrit 30.9 VOL% (35.7-47.0); Hemoglobin 9.7 GM/DL (12.0-16.0); Immature Granulocytes % 0.5 %; Immature Granulocytes Absolute 0.06 #; Lymphocytes # 0.8 10*3/uL (1.4-4.0); Lymphocytes % 6.7 % (21.3-54.2); Mean Corpuscular HGB Conc 31.4 GM/DL (32-36); Mean Corpuscular Volume 88.3 FL (87-102); Mean Platelet Volume 11.8 FL (9.6-12.0); Monocytes % 4.1 % (1.7-12.7); Neutrophils % 88.6 % (38.7-73.9); Platelet Count 261 T/CUMM (130-400); Red Cell Distribution Width 14.9 % (9.3-17.3); White Blood Count 11.6 T/CUMM (4-12)
[2019-11-15 05:25] LABS: Calcium 8.7 MG/DL (8.5-10.1); Osmolality,Calculated 289.5 MOS/KG (273-304)
[2019-11-15 05:32] LABS: CKMB % 3.3 %
[2019-11-15 05:53] LABS: Risk Ratio 4.02; VLDL CHOLESTEROL 61.4 MG/DL
[2019-11-15 06:25] LABS: Troponin I 14.1 NG/ML (0.00-0.045)
[2019-11-15] MEDS ORDERED: LOSARTAN 50 MG TABLET PO SCH (09:00)
[2019-11-15] MEDS: DOCUSATE SODIUM 100 MG/10 ML UDCUP PO SCH ×2 (09:05→20:07)
[2019-11-15] MEDS: methylPREDNISolone SOD SUC 40 MG/1 ML VIAL IV SCH ×2 (09:05→20:08)
[2019-11-15] MEDS: PANTOPRAZOLE 40 MG VIAL IV SCH (09:05)
[2019-11-15] MEDS: FUROSEMIDE 40 MG/4 ML VIAL IV SCH (09:06)
[2019-11-15] MEDS: GLIMEPIRIDE 2 MG TABLET PO SCH (09:07)
[2019-11-15] MEDS: FENOFIBRATE 145 MG TABLET PO SCH (09:08)
[2019-11-15] MEDS: MAGNESIUM CHLORIDE 64 MG TABLET PO SCH ×2 (09:08→20:07)
[2019-11-15] MEDS: CITALOPRAM 20 MG TABLET PO SCH (09:08)
[2019-11-15] MEDS: carvediloL 3.125 MG TABLET PO SCH ×2 (09:09→20:08)
[2019-11-15] MEDS: LEVOTHYROXINE 100 MCG TABLET PO SCH (09:09)
[2019-11-15] MEDS: ASPIRIN EC 81 MG TABLET PO SCH (09:09)
[2019-11-15] MEDS: OMEGA 3 ACID ETHYL ESTERS 1 GM CAPSULE PO SCH (09:10)
[2019-11-15] MEDS: MULTIVITAMIN (CENTRUM) TABLET PO SCH (09:10)
[2019-11-15] MEDS: SODIUM CHLORIDE 0.45% 1,000 ML IV SCH (09:11)
[2019-11-15] MEDS: MIDAZOLAM 100 MG in SODIUM CHLORIDE 0.9% 80 ML IV PRN (10:43)
[2019-11-15] MEDS: ENOXAPARIN 80 MG/0.8 ML SYRINGE SUBCUT SCH (20:08)
[2019-11-15] MEDS: CLOPIDOGREL 75 MG TABLET PO SCH (20:09)
[2019-11-15] MEDS: ATORVASTATIN 20 MG TABLET PO SCH (20:12)
[2019-11-16] MEDS: INSULIN LISPRO 100 UNIT/ML SUBCUT SCH ×4 (00:53→18:18)
[2019-11-16 03:46] LABS: ABG Base Excess 1.5 MMOL/L (-2.5-2.5); ABG HCO3 25.1 MMOL/L (20-26); ABG Oxygen Saturation 97.5 % (95-100); ABG PCO2 35.8 MM HG (35-48); ABG PH 7.464 (7.35-7.45); ABG PO2 112.2 MM HG (80-95); ABG TCO2 26.2 MMOL/L (23-27); Allen Test Positive; Pt O2 Delivery Device Ventilator
[2019-11-16 05:04] LABS: Basophils % 0.1 % (0.0-0.8); Hematocrit 29.1 VOL% (35.7-47.0); Hemoglobin 9.6 GM/DL (12.0-16.0); Immature Granulocytes % 0.8 %; Immature Granulocytes Absolute 0.09 #; Lymphocytes % 8.6 % (21.3-54.2); Mean Corpuscular Volume 86.4 FL (87-102); Mean Platelet Volume 11.9 FL (9.6-12.0); Monocytes % 6.1 % (1.7-12.7); Neutrophils % 84.4 % (38.7-73.9); Platelet Count 244 T/CUMM (130-400); Red Blood Count 3.37 MC/CUMM (3.8-5.5); Red Cell Distribution Width 14.6 % (9.3-17.3); White Blood Count 11.8 T/CUMM (4-12)
[2019-11-16] MEDS: SODIUM CHLORIDE 0.45% 1,000 ML IV SCH (05:26)
[2019-11-16 05:58] LABS: Calcium 9.2 MG/DL (8.5-10.1); Osmolality,Calculated 284.2 MOS/KG (273-304)
[2019-11-16] MEDS: MULTIVITAMIN (CENTRUM) TABLET PO SCH (09:33)
[2019-11-16] MEDS: ASPIRIN EC 81 MG TABLET PO SCH (09:33)
[2019-11-16] MEDS: OMEGA 3 ACID ETHYL ESTERS 1 GM CAPSULE PO SCH (09:33)
[2019-11-16] MEDS: carvediloL 3.125 MG TABLET PO SCH ×3 (09:33→20:46)
[2019-11-16] MEDS: LEVOTHYROXINE 100 MCG TABLET PO SCH (09:34)
[2019-11-16] MEDS: MAGNESIUM CHLORIDE 64 MG TABLET PO SCH ×2 (09:34→20:37)
[2019-11-16] MEDS: GLIMEPIRIDE 2 MG TABLET PO SCH (09:34)
[2019-11-16] MEDS: CITALOPRAM 20 MG TABLET PO SCH (09:34)
[2019-11-16] MEDS: FUROSEMIDE 40 MG/4 ML VIAL IV SCH (09:35)
[2019-11-16] MEDS: DOCUSATE SODIUM 100 MG/10 ML UDCUP PO SCH ×2 (09:35→20:37)
[2019-11-16] MEDS: PANTOPRAZOLE 40 MG VIAL IV SCH (09:35)
[2019-11-16] MEDS: FENOFIBRATE 145 MG TABLET PO SCH (09:36)
[2019-11-16] MEDS: methylPREDNISolone SOD SUC 40 MG/1 ML VIAL IV SCH ×2 (09:36→20:37)
[2019-11-16] MEDS: metroNIDAZOLE INJ 500 MG in PREMIX 1 EACH IV SCH (15:30)
[2019-11-16] MEDS: LEVOFLOXACIN INJ 500 MG in PREMIX 1 EACH IV SCH (15:32)
[2019-11-16] MEDS: ENOXAPARIN 80 MG/0.8 ML SYRINGE SUBCUT SCH (20:37)
[2019-11-16] MEDS: ATORVASTATIN 20 MG TABLET PO SCH (20:37)
[2019-11-16] MEDS: CLOPIDOGREL 75 MG TABLET PO SCH (20:38)
[2019-11-17] MEDS: metroNIDAZOLE INJ 500 MG in PREMIX 1 EACH IV SCH ×2 (00:16→12:49)
[2019-11-17] MEDS: INSULIN LISPRO 100 UNIT/ML SUBCUT SCH ×4 (00:17→18:28)
[2019-11-17] MEDS: SODIUM CHLORIDE 0.45% 1,000 ML IV SCH ×2 (02:14)
[2019-11-17 05:25] LABS: Basophils % 0.1 % (0.0-0.8); Hematocrit 34.2 VOL% (35.7-47.0); Hemoglobin 10.8 GM/DL (12.0-16.0); Immature Granulocytes % 0.5 %; Immature Granulocytes Absolute 0.06 #; Lymphocytes # 1.2 10*3/uL (1.4-4.0); Lymphocytes % 9.6 % (21.3-54.2); Mean Corpuscular HGB Conc 31.6 GM/DL (32-36); Mean Corpuscular Volume 87.5 FL (87-102); Mean Platelet Volume 11.7 FL (9.6-12.0); Monocytes % 6.8 % (1.7-12.7); Platelet Count 275 T/CUMM (130-400); Red Blood Count 3.91 MC/CUMM (3.8-5.5); Red Cell Distribution Width 14.4 % (9.3-17.3)
[2019-11-17 05:39] LABS: Calcium 9.1 MG/DL (8.5-10.1); Osmolality,Calculated 285.4 MOS/KG (273-304)
[2019-11-17] MEDS: PANTOPRAZOLE 40 MG VIAL IV SCH (09:49)
[2019-11-17] MEDS: FUROSEMIDE 40 MG/4 ML VIAL IV SCH (09:49)
[2019-11-17] MEDS: methylPREDNISolone SOD SUC 40 MG/1 ML VIAL IV SCH ×2 (09:49→20:48)
[2019-11-17] MEDS: GLIMEPIRIDE 2 MG TABLET PO SCH (09:50)
[2019-11-17] MEDS: DOCUSATE SODIUM 100 MG/10 ML UDCUP PO SCH ×2 (09:50→20:48)
[2019-11-17] MEDS: MAGNESIUM CHLORIDE 64 MG TABLET PO SCH ×2 (09:50→20:48)
[2019-11-17] MEDS: ASPIRIN EC 81 MG TABLET PO SCH (09:50)
[2019-11-17] MEDS: MULTIVITAMIN (CENTRUM) TABLET PO SCH (09:50)
[2019-11-17] MEDS: FENOFIBRATE 145 MG TABLET PO SCH (09:50)
[2019-11-17] MEDS: OMEGA 3 ACID ETHYL ESTERS 1 GM CAPSULE PO SCH (09:50)
[2019-11-17] MEDS: carvediloL 3.125 MG TABLET PO SCH ×2 (09:52→20:55)
[2019-11-17] MEDS: LEVOTHYROXINE 100 MCG TABLET PO SCH (09:52)
[2019-11-17] MEDS: CITALOPRAM 20 MG TABLET PO SCH (09:53)
[2019-11-17] MEDS: CLOPIDOGREL 75 MG TABLET PO SCH (20:48)
[2019-11-17] MEDS: ATORVASTATIN 20 MG TABLET PO SCH (20:48)
[2019-11-17] MEDS: ENOXAPARIN 80 MG/0.8 ML SYRINGE SUBCUT SCH (20:49)
[2019-11-18] MEDS: INSULIN LISPRO 100 UNIT/ML SUBCUT SCH ×5 (00:16→21:59)
[2019-11-18] MEDS: SODIUM CHLORIDE 0.45% 1,000 ML IV SCH (00:16)
[2019-11-18] MEDS: metroNIDAZOLE INJ 500 MG in PREMIX 1 EACH IV SCH ×2 (00:16→12:10)
[2019-11-18 04:47] LABS: Basophils % 0.1 % (0.0-0.8); Eosinophils % 0.1 % (0.00-10.9); Hematocrit 33.1 VOL% (35.7-47.0); Hemoglobin 10.5 GM/DL (12.0-16.0); Immature Granulocytes % 0.8 %; Immature Granulocytes Absolute 0.07 #; Lymphocytes # 1.2 10*3/uL (1.4-4.0); Lymphocytes % 13.2 % (21.3-54.2); Mean Corpuscular HGB Conc 31.7 GM/DL (32-36); Mean Corpuscular Volume 86.4 FL (87-102); Mean Platelet Volume 11.5 FL (9.6-12.0); Monocytes % 6.3 % (1.7-12.7); Neutrophils % 79.5 % (38.7-73.9); Platelet Count 274 T/CUMM (130-400); Red Blood Count 3.83 MC/CUMM (3.8-5.5); Red Cell Distribution Width 14.3 % (9.3-17.3); White Blood Count 8.9 T/CUMM (4-12)
[2019-11-18 05:17] LABS: Calcium 8.9 MG/DL (8.5-10.1); Osmolality,Calculated 284.7 MOS/KG (273-304)
[2019-11-18] MEDS ORDERED: SODIUM CHLORIDE 0.9% 1,000 ML IV SCH (07:30)
[2019-11-18] MEDS ORDERED: LIDOCAINE 1%/EPI INJ 20 ML VIAL ONE (07:35)
[2019-11-18] MEDS ORDERED: HEPARIN/NACL 0.9% 2 UNITS/ML 1,000 ML IV ONE (07:35)
[2019-11-18] MEDS ORDERED: DIAZEPAM 5 MG TABLET PO ONE (07:36)
[2019-11-18] MEDS ORDERED: diphenhydrAMINE CAP 50 MG CAPSULE PO ONE (07:36)
[2019-11-18] MEDS ORDERED: MAGNESIUM SULF RIDER 2 GM in PREMIX 1 EACH IV PRN (07:39)
[2019-11-18] MEDS ORDERED: POTASSIUM CHLORIDE RIDER 10 MEQ in PREMIX 1 EACH IV PRN (07:39)
[2019-11-18] MEDS ORDERED: fentaNYL 100 MCG/2 ML VIAL ONE (07:43)
[2019-11-18] MEDS ORDERED: DEXTROSE 10% 250 ML BAG IV PRN (08:02)
[2019-11-18] MEDS ORDERED: MIDAZOLAM 2 MG/2 ML VIAL ONE (08:11)
[2019-11-18] MEDS ORDERED: ENOXAPARIN 30 MG/0.3 ML SYRINGE ONE (08:24)
[2019-11-18] MEDS ORDERED: TICAGRELOR 90 MG TABLET ONE (08:35)
[2019-11-18] MEDS ORDERED: HYDROmorphone 2 MG/1 ML VIAL IV PRN (09:03)
[2019-11-18] MEDS: DOCUSATE SODIUM 100 MG/10 ML UDCUP PO SCH ×3 (10:12→22:08)
[2019-11-18] MEDS: LEVOFLOXACIN INJ 500 MG in PREMIX 1 EACH IV SCH (10:27)
[2019-11-18] MEDS: methylPREDNISolone SOD SUC 40 MG/1 ML VIAL IV SCH ×2 (10:32→22:01)
[2019-11-18] MEDS: PANTOPRAZOLE 40 MG VIAL IV SCH (10:32)
[2019-11-18] MEDS: MAGNESIUM CHLORIDE 64 MG TABLET PO SCH ×2 (10:34→21:57)
[2019-11-18] MEDS: FENOFIBRATE 145 MG TABLET PO SCH (10:35)
[2019-11-18] MEDS: ASPIRIN EC 81 MG TABLET PO SCH (10:35)
[2019-11-18] MEDS: CITALOPRAM 20 MG TABLET PO SCH (10:35)
[2019-11-18] MEDS: GLIMEPIRIDE 2 MG TABLET PO SCH (10:35)
[2019-11-18] MEDS: MULTIVITAMIN (CENTRUM) TABLET PO SCH (10:35)
[2019-11-18] MEDS: carvediloL 3.125 MG TABLET PO SCH ×2 (10:35→21:58)
[2019-11-18] MEDS: OMEGA 3 ACID ETHYL ESTERS 1 GM CAPSULE PO SCH (10:35)
[2019-11-18] MEDS: LEVOTHYROXINE 100 MCG TABLET PO SCH (10:35)
[2019-11-18] MEDS: ATORVASTATIN 20 MG TABLET PO SCH (21:58)
[2019-11-18] MEDS: TICAGRELOR 90 MG TABLET PO SCH (21:59)
[2019-11-19] MEDS: metroNIDAZOLE INJ 500 MG in PREMIX 1 EACH IV SCH ×2 (00:43→12:10)
[2019-11-19 04:45] LABS: Hematocrit 31.3 VOL% (35.7-47.0); Hemoglobin 10.1 GM/DL (12.0-16.0); Immature Granulocytes % 1.2 %; Lymphocytes # 0.8 10*3/uL (1.4-4.0); Lymphocytes % 9.6 % (21.3-54.2); Mean Corpuscular HGB Conc 32.3 GM/DL (32-36); Mean Corpuscular Volume 85.5 FL (87-102); Mean Platelet Volume 11.9 FL (9.6-12.0); Monocytes % 5.1 % (1.7-12.7); Neutrophils % 84.1 % (38.7-73.9); Platelet Count 265 T/CUMM (130-400); Red Blood Count 3.66 MC/CUMM (3.8-5.5); Red Cell Distribution Width 14.3 % (9.3-17.3); White Blood Count 8.1 T/CUMM (4-12)
[2019-11-19 05:20] LABS: Calcium 8.2 MG/DL (8.5-10.1); Osmolality,Calculated 292.2 MOS/KG (273-304)
[2019-11-19] MEDS: SODIUM CHLORIDE 0.45% 1,000 ML IV SCH ×2 (05:44)
[2019-11-19] MEDS ORDERED: SODIUM CHLORIDE 0.9% 1,000 ML IV SCH (08:00)
[2019-11-19] MEDS: PANTOPRAZOLE 40 MG VIAL IV SCH (08:18)
[2019-11-19] MEDS: methylPREDNISolone SOD SUC 40 MG/1 ML VIAL IV SCH ×2 (08:18→21:33)
[2019-11-19] MEDS: INSULIN LISPRO 100 UNIT/ML SUBCUT SCH ×4 (08:19→21:32)
[2019-11-19] MEDS: ASPIRIN EC 81 MG TABLET PO SCH (08:20)
[2019-11-19] MEDS: MAGNESIUM CHLORIDE 64 MG TABLET PO SCH ×2 (08:20→21:32)
[2019-11-19] MEDS: OMEGA 3 ACID ETHYL ESTERS 1 GM CAPSULE PO SCH (08:20)
[2019-11-19] MEDS: LEVOTHYROXINE 100 MCG TABLET PO SCH (08:21)
[2019-11-19] MEDS: CITALOPRAM 20 MG TABLET PO SCH (08:21)
[2019-11-19] MEDS: GLIMEPIRIDE 2 MG TABLET PO SCH (08:21)
[2019-11-19] MEDS: TICAGRELOR 90 MG TABLET PO SCH ×2 (08:21→21:33)
[2019-11-19] MEDS: FENOFIBRATE 145 MG TABLET PO SCH (08:21)
[2019-11-19] MEDS: DOCUSATE SODIUM 100 MG/10 ML UDCUP PO SCH ×3 (08:22→21:32)
[2019-11-19] MEDS: carvediloL 3.125 MG TABLET PO SCH ×2 (08:22→21:33)
[2019-11-19] MEDS: MULTIVITAMIN (CENTRUM) TABLET PO SCH (08:22)
[2019-11-19] MEDS: ALBUTEROL 2.5 MG/3 ML NEB RESP TX SCH (20:06)
[2019-11-19] MEDS: ATORVASTATIN 20 MG TABLET PO SCH (21:33)
[2019-11-20] MEDS: metroNIDAZOLE INJ 500 MG in PREMIX 1 EACH IV SCH (00:28)
[2019-11-20] MEDS: ALBUTEROL 2.5 MG/3 ML NEB RESP TX SCH ×2 (01:09→07:40)
[2019-11-20 03:43] LABS: Basophils % 0.1 % (0.0-0.8); Eosinophils % 0.1 % (0.00-10.9); Hematocrit 30.4 VOL% (35.7-47.0); Hemoglobin 9.5 GM/DL (12.0-16.0); Immature Granulocytes % 1.4 %; Immature Granulocytes Absolute 0.11 #; Lymphocytes # 0.9 10*3/uL (1.4-4.0); Lymphocytes % 11.2 % (21.3-54.2); Mean Corpuscular HGB Conc 31.3 GM/DL (32-36); Mean Corpuscular Volume 87.6 FL (87-102); Mean Platelet Volume 11.4 FL (9.6-12.0); Monocytes % 4.3 % (1.7-12.7); Neutrophils % 82.9 % (38.7-73.9); Platelet Count 255 T/CUMM (130-400); Red Blood Count 3.47 MC/CUMM (3.8-5.5); Red Cell Distribution Width 14.2 % (9.3-17.3); White Blood Count 7.9 T/CUMM (4-12)
[2019-11-20 03:59] LABS: Calcium 7.8 MG/DL (8.5-10.1); Osmolality,Calculated 291.1 MOS/KG (273-304)
[2019-11-20 08:40] VITALS: BP 141/84
[2019-11-20] MEDS: INSULIN LISPRO 100 UNIT/ML SUBCUT SCH (08:49)
[2019-11-20] MEDS: OMEGA 3 ACID ETHYL ESTERS 1 GM CAPSULE PO SCH (08:50)
[2019-11-20] MEDS: GLIMEPIRIDE 2 MG TABLET PO SCH (08:50)
[2019-11-20] MEDS: MAGNESIUM CHLORIDE 64 MG TABLET PO SCH (08:50)
[2019-11-20] MEDS: LEVOTHYROXINE 100 MCG TABLET PO SCH (08:50)
[2019-11-20] MEDS: carvediloL 3.125 MG TABLET PO SCH (08:50)
[2019-11-20] MEDS: MULTIVITAMIN (CENTRUM) TABLET PO SCH (08:50)
[2019-11-20] MEDS: CITALOPRAM 20 MG TABLET PO SCH (08:50)
[2019-11-20] MEDS: FENOFIBRATE 145 MG TABLET PO SCH (08:50)
[2019-11-20] MEDS: PANTOPRAZOLE 40 MG VIAL IV SCH (08:51)
[2019-11-20] MEDS: methylPREDNISolone SOD SUC 40 MG/1 ML VIAL IV SCH (08:51)
[2019-11-20] MEDS: TICAGRELOR 90 MG TABLET PO SCH (08:51)
[2019-11-20] MEDS: ASPIRIN EC 81 MG TABLET PO SCH (08:51)
[2019-11-20] MEDS: DOCUSATE SODIUM 100 MG/10 ML UDCUP PO SCH (08:57)
== END 2019-11-20 11:10 | disposition home health service (06) | DRG 981 ==
LOC: EDUNIT# → EDBD → N.ED 06:41 → N.EDINP 09:41 → N.4E 10:09 → N.CC 11-13 20:14 → N.TELES 11-19 11:00
PROVIDERS: ADMIT Family Medicine; ATTEND Family Medicine

== ENCOUNTER 2020-06-15 06:52 | Observation (INO) ==
[2020-06-15 07:22] LABS: Basophils # 0.1 10*3/uL (0.0-0.2); Basophils % 0.7 % (0.0-0.8); Eosinophils # 0.2 10*3/uL (0.0-0.87); Eosinophils % 3.5 % (0.00-10.9); Hematocrit 30.3 VOL% (35.7-47.0); Hemoglobin 10.1 GM/DL (12.0-16.0); Immature Granulocytes % 0.4 %; Immature Granulocytes Absolute 0.03 #; Lymphocytes # 1.4 10*3/uL (1.4-4.0); Lymphocytes % 20.9 % (21.3-54.2); Mean Corpuscular HGB Conc 33.3 GM/DL (32-36); Mean Corpuscular Volume 94.1 FL (87-102); Mean Platelet Volume 12.1 FL (9.6-12.0); Monocytes % 10.7 % (1.7-12.7); Neutrophils % 63.8 % (38.7-73.9); Platelet Count 178 T/CUMM (130-400); Red Blood Count 3.22 MC/CUMM (3.8-5.5); Red Cell Distribution Width 16.1 % (9.3-17.3); White Blood Count 6.8 T/CUMM (4-12)
[2020-06-15] MEDS ORDERED: NITROGLYCERIN 2% OINT 1 INCH/GM PACK TOP STA (07:28)
[2020-06-15] MEDS ORDERED: ONDANSETRON 4 MG/2 ML VIAL IV STA (07:40)
[2020-06-15] MEDS ORDERED: MORPHINE 4 MG/1 ML VIAL IV STA (07:40)
[2020-06-15 07:49] LABS: Albumin 3.9 G/DL (3.4-5.0); Bilirubin,Total 0.4 MG/DL (0.2-1.0); Calcium 8.4 MG/DL (8.5-10.1); Osmolality,Calculated 283.5 MOS/KG (273-304); Total Protein 7.2 G/DL (6.4-8.3)
[2020-06-15 08:26] LABS: INR 1.1; PT Patient Result 11.3 SECS (9.8-11.9); Partial Thromboplastin Time 25.9 SECS (23.9-33.8)
[2020-06-15] MEDS ORDERED: ACETAMINOPHEN 325 MG TABLET PO PRN (09:50)
[2020-06-15] MEDS ORDERED: SODIUM CHLORIDE 0.9% 1,000 ML IV SCH (09:50)
[2020-06-15] MEDS ORDERED: GLUCAGON 1 MG VIAL IM PRN (09:50)
[2020-06-15] MEDS ORDERED: DEXTROSE 50% 25 GM/50 ML VIAL IV PRN (09:50)
[2020-06-15] MEDS ORDERED: ONDANSETRON 4 MG/2 ML VIAL IV PRN (09:50)
[2020-06-15] MEDS ORDERED: INFLUENZA VIRUS VACCINE 0.5 ML SYRINGE IM ONE (10:59)
[2020-06-15] MEDS: DOCUSATE SODIUM 100 MG CAPSULE PO SCH ×2 (11:01→21:27)
[2020-06-15] MEDS: ENOXAPARIN 30 MG/0.3 ML SYRINGE SUBCUT SCH (11:54)
[2020-06-15] MEDS: PANTOPRAZOLE 40 MG TABLET PO SCH (11:54)
[2020-06-15] MEDS: INSULIN LISPRO 100 UNIT/ML SUBCUT SCH ×3 (13:25→21:40)
[2020-06-15] MEDS ORDERED: KETOROLAC 10 MG TABLET PO PRN (16:26)
[2020-06-15] MEDS ORDERED: NITROGLYCERIN SL 0.4 MG TABLET SL SCH (16:30)
[2020-06-15] MEDS ORDERED: NITROGLYCERIN SL 0.4 MG TABLET SL PRN (16:31)
[2020-06-15] MEDS: carvediloL 6.25 MG TABLET PO SCH (16:37)
[2020-06-15] MEDS ORDERED: traMADol 50 MG TABLET PO PRN (16:42)
[2020-06-15] MEDS ORDERED: ALBUTEROL 2.5 MG/3 ML NEB RESP TX PRN (19:00)
[2020-06-15] MEDS: MAGNESIUM CHLORIDE 64 MG TABLET PO SCH (21:27)
[2020-06-15] MEDS: ATORVASTATIN 40 MG TABLET PO SCH (21:27)
[2020-06-15] MEDS: LOSARTAN 50 MG TABLET PO SCH (21:27)
[2020-06-15] MEDS: TICAGRELOR 90 MG TABLET PO SCH (21:27)
[2020-06-15] MEDS: hydrALAZINE 20 MG/1 ML VIAL IV PRN (21:37)
[2020-06-15] MEDS ORDERED: FLUTICASONE 50 MCG NASAL SPRAY 16 GM BOTTLE BOTH NARES PRN (22:26)
[2020-06-15] MEDS ORDERED: CETIRIZINE 10 MG TABLET PO PRN (22:27)
[2020-06-15 22:45] LABS: Bacteria,Urine Occasional /HPF (Few); Bilirubin,Urine Negative (Negative); Blood, Urine Negative (Negative); Glucose,Urine (UA) Negative (Negative); Hyaline Casts,Urine 7 /LPF (0-3); Ketones,Urine Negative (Negative); Mucus,Urine Occasional /LPF (Occasional); Nitrite,Urine Positive (Negative); Protein,Urine 30 MG/DL; RBC,Urine 2 /HPF (0-4); Squamous Epithelial Cell,Urine Occasional /HPF (0-10); Urine Appearance Slightly Hazy (Clear); Urine Color Yellow (Yellow); Urine Specific Gravity 1.016 (1.001-1.035); Urine Urobilinogen < 2.0 EU/DL (0.2-1.0); WBC,Urine 48 /HPF (0-6)
[2020-06-16] MEDS: INSULIN LISPRO 100 UNIT/ML SUBCUT SCH ×4 (07:52→20:34)
[2020-06-16 08:19] LABS: Troponin I < 0.015 NG/ML (0.00-0.045)
[2020-06-16] MEDS: GLIMEPIRIDE 2 MG TABLET PO SCH (08:38)
[2020-06-16] MEDS: ASPIRIN CHEW 81 MG TABLET PO SCH (08:38)
[2020-06-16] MEDS: LEVOTHYROXINE 88 MCG TABLET PO SCH (08:39)
[2020-06-16] MEDS: MAGNESIUM CHLORIDE 64 MG TABLET PO SCH ×2 (08:39→20:33)
[2020-06-16] MEDS: CITALOPRAM 20 MG TABLET PO SCH (08:39)
[2020-06-16] MEDS: TICAGRELOR 90 MG TABLET PO SCH ×2 (08:39→20:34)
[2020-06-16] MEDS: PANTOPRAZOLE 40 MG TABLET PO SCH (08:39)
[2020-06-16] MEDS: LOSARTAN 50 MG TABLET PO SCH ×2 (08:39→20:36)
[2020-06-16] MEDS: DOCUSATE SODIUM 100 MG CAPSULE PO SCH ×2 (08:39→20:34)
[2020-06-16] MEDS: carvediloL 6.25 MG TABLET PO SCH ×2 (08:39→17:10)
[2020-06-16] MEDS: Fluticasone-Umeclidin-Vilanter [Trelegy Ellipta] 100-62.5-25 mcg INH SCH (08:40)
[2020-06-16] MEDS: amLODIPine 5 MG TABLET PO SCH (08:44)
[2020-06-16] MEDS ORDERED: amLODIPine 2.5 MG TABLET PO SCH (09:00)
[2020-06-16] MEDS ORDERED: FUROSEMIDE 20 MG TABLET PO SCH (09:00)
[2020-06-16] MEDS: ENOXAPARIN 30 MG/0.3 ML SYRINGE SUBCUT SCH (09:59)
[2020-06-16] MEDS: cefTRIAXone 1,000 MG in SYRINGE 1 EACH IV SCH (10:00)
[2020-06-16 10:46] LABS: Troponin I < 0.015 NG/ML (0.00-0.045)
[2020-06-16 14:09] LABS: Troponin I < 0.015 NG/ML (0.00-0.045)
[2020-06-16] MEDS: ATORVASTATIN 40 MG TABLET PO SCH (20:34)
[2020-06-17 05:08] LABS: Basophils % 0.7 % (0.0-0.8); Eosinophils # 0.3 10*3/uL (0.0-0.87); Hematocrit 26.7 VOL% (35.7-47.0); Hemoglobin 8.7 GM/DL (12.0-16.0); Immature Granulocytes % 0.4 %; Immature Granulocytes Absolute 0.02 #; Lymphocytes # 1.3 10*3/uL (1.4-4.0); Lymphocytes % 23.5 % (21.3-54.2); Mean Corpuscular HGB Conc 32.6 GM/DL (32-36); Mean Corpuscular Volume 94.7 FL (87-102); Mean Platelet Volume 12.4 FL (9.6-12.0); Monocytes % 12.9 % (1.7-12.7); Neutrophils % 57.5 % (38.7-73.9); Platelet Count 148 T/CUMM (130-400); Red Blood Count 2.82 MC/CUMM (3.8-5.5); Red Cell Distribution Width 16.4 % (9.3-17.3); White Blood Count 5.4 T/CUMM (4-12)
[2020-06-17 05:38] LABS: Calcium 8.1 MG/DL (8.5-10.1); Osmolality,Calculated 284.4 MOS/KG (273-304)
[2020-06-17] MEDS: INSULIN LISPRO 100 UNIT/ML SUBCUT SCH ×4 (07:48→21:57)
[2020-06-17 08:58] LABS: % Iron Saturation 15.4 % (18-50); Ferritin 65.7 ng/ml (8-252)
[2020-06-17] MEDS: TICAGRELOR 90 MG TABLET PO SCH ×2 (09:09→20:58)
[2020-06-17] MEDS: ASPIRIN CHEW 81 MG TABLET PO SCH (09:09)
[2020-06-17] MEDS: PANTOPRAZOLE 40 MG TABLET PO SCH (09:09)
[2020-06-17] MEDS: CITALOPRAM 20 MG TABLET PO SCH (09:09)
[2020-06-17] MEDS: hydrALAZINE 25 MG TABLET PO SCH ×2 (09:10→20:58)
[2020-06-17] MEDS: DOCUSATE SODIUM 100 MG CAPSULE PO SCH ×2 (09:10→20:58)
[2020-06-17] MEDS: amLODIPine 5 MG TABLET PO SCH (09:10)
[2020-06-17] MEDS: LEVOTHYROXINE 88 MCG TABLET PO SCH (09:10)
[2020-06-17] MEDS: MAGNESIUM CHLORIDE 64 MG TABLET PO SCH ×2 (09:10→20:58)
[2020-06-17] MEDS: LOSARTAN 50 MG TABLET PO SCH ×2 (09:10→20:58)
[2020-06-17] MEDS: carvediloL 6.25 MG TABLET PO SCH ×2 (09:11→17:00)
[2020-06-17] MEDS: cefTRIAXone 1,000 MG in SYRINGE 1 EACH IV SCH (09:11)
[2020-06-17] MEDS: Fluticasone-Umeclidin-Vilanter [Trelegy Ellipta] 100-62.5-25 mcg INH SCH (09:13)
[2020-06-17] MEDS: GLIMEPIRIDE 2 MG TABLET PO SCH (09:16)
[2020-06-17] MEDS: SODIUM CHLORIDE 0.45% 1,000 ML IV SCH (09:17)
[2020-06-17 09:27] LABS: Folate 12.3 NG/ML (5.4-24.0)
[2020-06-17] MEDS: ENOXAPARIN 30 MG/0.3 ML SYRINGE SUBCUT SCH (10:15)
[2020-06-17] MEDS: ATORVASTATIN 40 MG TABLET PO SCH (20:58)
[2020-06-18] MEDS: hydrALAZINE 20 MG/1 ML VIAL IV PRN (03:20)
[2020-06-18] MEDS: SODIUM CHLORIDE 0.45% 1,000 ML IV SCH (04:45)
[2020-06-18 06:29] LABS: Basophils # 0.1 10*3/uL (0.0-0.2); Basophils % 0.7 % (0.0-0.8); Eosinophils # 0.4 10*3/uL (0.0-0.87); Eosinophils % 5.4 % (0.00-10.9); Hematocrit 29.3 VOL% (35.7-47.0); Hemoglobin 9.7 GM/DL (12.0-16.0); Immature Granulocytes % 0.6 %; Immature Granulocytes Absolute 0.04 #; Lymphocytes # 1.4 10*3/uL (1.4-4.0); Lymphocytes % 19.3 % (21.3-54.2); Mean Corpuscular HGB Conc 33.1 GM/DL (32-36); Mean Corpuscular Volume 93.3 FL (87-102); Mean Platelet Volume 12.4 FL (9.6-12.0); Monocytes % 10.8 % (1.7-12.7); Neutrophils % 63.2 % (38.7-73.9); Platelet Count 182 T/CUMM (130-400); Red Blood Count 3.14 MC/CUMM (3.8-5.5); Red Cell Distribution Width 16.3 % (9.3-17.3); White Blood Count 7.2 T/CUMM (4-12)
[2020-06-18 06:43] LABS: Calcium 9.3 MG/DL (8.5-10.1); Osmolality,Calculated 282.7 MOS/KG (273-304)
[2020-06-18] MEDS: GLIMEPIRIDE 2 MG TABLET PO SCH (08:57)
[2020-06-18] MEDS: DOCUSATE SODIUM 100 MG CAPSULE PO SCH (08:58)
[2020-06-18] MEDS: MAGNESIUM CHLORIDE 64 MG TABLET PO SCH (08:58)
[2020-06-18] MEDS: ASPIRIN CHEW 81 MG TABLET PO SCH (08:58)
[2020-06-18] MEDS: LEVOTHYROXINE 88 MCG TABLET PO SCH (08:58)
[2020-06-18] MEDS: carvediloL 6.25 MG TABLET PO SCH (08:59)
[2020-06-18] MEDS: amLODIPine 5 MG TABLET PO SCH (08:59)
[2020-06-18] MEDS: CITALOPRAM 20 MG TABLET PO SCH (08:59)
[2020-06-18] MEDS: TICAGRELOR 90 MG TABLET PO SCH (08:59)
[2020-06-18] MEDS: LOSARTAN 50 MG TABLET PO SCH (08:59)
[2020-06-18] MEDS: PANTOPRAZOLE 40 MG TABLET PO SCH (08:59)
[2020-06-18] MEDS ORDERED: hydrALAZINE 25 MG TABLET PO SCH (09:00)
[2020-06-18] MEDS: INSULIN LISPRO 100 UNIT/ML SUBCUT SCH ×2 (09:00→12:39)
[2020-06-18] MEDS: Fluticasone-Umeclidin-Vilanter [Trelegy Ellipta] 100-62.5-25 mcg INH SCH (09:01)
[2020-06-18] MEDS: cefTRIAXone 1,000 MG in SYRINGE 1 EACH IV SCH (09:02)
[2020-06-18] MEDS: ENOXAPARIN 30 MG/0.3 ML SYRINGE SUBCUT SCH (09:34)
[2020-06-18] MEDS ORDERED: amLODIPine 5 MG TABLET PO SCH (09:51)
[2020-06-18] MEDS ORDERED: amLODIPine 5 MG TABLET PO ONE (09:52)
[2020-06-18] MEDS ORDERED: MAGNESIUM HYDROXIDE SUSP 30 ML UDCUP PO PRN (10:04)
[2020-06-18 12:41] VITALS: BP 165/57
== END 2020-06-18 16:05 | disposition home or self-care (01) ==
LOC: N.ED 06:52 → N.EDINP 06:52 → N.TELES 10:23
PROVIDERS: ADMIT Family Medicine; ATTEND Family Medicine

== ENCOUNTER 2020-11-16 13:48 | Inpatient (IN) ==
[2020-11-16] MEDS ORDERED: EPINEPHrine 1 MG/10 ML SYRINGE IV STA (14:06)
[2020-11-16] MEDS ORDERED: LIDOCAINE 1% 20 ML VIAL ONE (14:18)
[2020-11-16] MEDS ORDERED: POTASSIUM CHLORIDE 20 MEQ TABLET PO PRN (14:19)
[2020-11-16] MEDS ORDERED: hydrALAZINE 20 MG/1 ML VIAL IV PRN (14:19)
[2020-11-16] MEDS ORDERED: guaiFENesin/DM ER 600-30 MG TABLET PO PRN (14:19)
[2020-11-16] MEDS ORDERED: traZODone 50 MG TABLET PO PRN (14:19)
[2020-11-16] MEDS ORDERED: ALUMINUM/MAGNES/SIMETH MAX STR 30 ML UDCUP PO PRN (14:19)
[2020-11-16] MEDS ORDERED: diphenhydrAMINE CAP 25 MG CAPSULE PO PRN (14:19)
[2020-11-16] MEDS ORDERED: DOCUSATE SODIUM 100 MG CAPSULE PO PRN (14:19)
[2020-11-16] MEDS ORDERED: MORPHINE 4 MG/1 ML VIAL IV PRN (14:19)
[2020-11-16] MEDS ORDERED: PROMETHAZINE 25 MG TABLET PO PRN (14:19)
[2020-11-16] MEDS ORDERED: ONDANSETRON 4 MG/2 ML VIAL IV PRN (14:19)
[2020-11-16] MEDS ORDERED: MAGNESIUM SULF RIDER 4 GM in PREMIX 1 EACH IV PRN (14:19)
[2020-11-16] MEDS ORDERED: MAGNESIUM SULF RIDER 2 GM in PREMIX 1 EACH IV PRN (14:19)
[2020-11-16] MEDS ORDERED: ceFAZolin 1,000 MG VIAL IRRIG ONE (14:21)
[2020-11-16] MEDS ORDERED: DIAZEPAM 5 MG TABLET PO ONE (14:21)
[2020-11-16] MEDS ORDERED: diphenhydrAMINE CAP 25 MG CAPSULE PO ONE (14:21)
[2020-11-16 14:29] LABS: Basophils # 0.1 10*3/uL (0.0-0.2); Basophils % 0.6 % (0.0-0.8); Eosinophils # 0.2 10*3/uL (0.0-0.87); Eosinophils % 2.5 % (0.00-10.9); Hematocrit 32.5 VOL% (35.7-47.0); Hemoglobin 10.2 GM/DL (12.0-16.0); Immature Granulocytes % 0.6 %; Immature Granulocytes Absolute 0.05 #; Lymphocytes # 2.3 10*3/uL (1.4-4.0); Lymphocytes % 25.9 % (21.3-54.2); Mean Corpuscular HGB Conc 31.4 GM/DL (32-36); Mean Corpuscular Volume 92.6 FL (87-102); Mean Platelet Volume 12.1 FL (9.6-12.0); Monocytes % 10.7 % (1.7-12.7); Neutrophils % 59.7 % (38.7-73.9); Platelet Count 182 T/CUMM (130-400); Red Blood Count 3.51 MC/CUMM (3.8-5.5); Red Cell Distribution Width 13.7 % (9.3-17.3); White Blood Count 8.9 T/CUMM (4-12)
[2020-11-16] MEDS ORDERED: SODIUM CHLORIDE 0.9% 1,000 ML IV SCH (14:30)
[2020-11-16] MEDS ORDERED: ALBUTEROL 0.63 MG/3 ML NEB RESP TX PRN (14:39)
[2020-11-16] MEDS ORDERED: FUROSEMIDE 20 MG TABLET PO PRN (14:39)
[2020-11-16 14:42] LABS: INR 1.1; PT Patient Result 12.2 SECS (9.8-11.9); Partial Thromboplastin Time 25.5 SECS (23.9-33.8)
[2020-11-16 14:54] LABS: Alanine Aminotransferase 17 U/L (13-56); Albumin 3.4 G/DL (3.4-5.0); Alkaline Phosphatase 75 U/L (45-117); Aspartate Amino Transferase 14 U/L (0-37); Bilirubin,Total < 0.39 MG/DL (0.2-1.0); Blood Urea Nitrogen 31 MG/DL (7-18); Calcium 8.6 MG/DL (8.5-10.1); Carbon Dioxide 19 MMOL/L (21-32); Estimated Glom Filtration Rate 31 ML/MIN; Glucose 222 MG/DL (74-106); Potassium 4.6 MMOL/L (3.5-5.1); Sodium 136 MMOL/L (136-145); Total Protein 6.2 G/DL (6.4-8.2)
[2020-11-16] MEDS ORDERED: NITROGLYCERIN SL 0.4 MG TABLET SL PRN (18:06)
[2020-11-16] MEDS: NITROGLYCERIN SL 0.4 MG TABLET SL SCH (18:43)
[2020-11-16] MEDS ORDERED: ALBUTEROL 2.5 MG/3 ML NEB RESP TX PRN (19:00)
[2020-11-16] MEDS: MAGNESIUM CHLORIDE 64 MG TABLET PO SCH (19:42)
[2020-11-16] MEDS: amLODIPine 5 MG TABLET PO SCH (20:09)
[2020-11-16] MEDS: LOSARTAN 50 MG TABLET PO SCH (20:10)
[2020-11-16] MEDS: ATORVASTATIN 40 MG TABLET PO SCH (20:10)
[2020-11-16 20:55] LABS: Bilirubin,Urine Negative (Negative); Blood, Urine Negative (Negative); Glucose,Urine (UA) 50 mg/dL (Negative); Ketones,Urine Negative (Negative); Mucus,Urine Occasional /LPF (Occasional); Nitrite,Urine Negative (Negative); Protein,Urine 30 MG/DL; Squamous Epithelial Cell,Urine Occasional /HPF (0-10); Urine Appearance CLEAR (Clear); Urine Color Yellow (Yellow); Urine Specific Gravity 1.009 (1.001-1.035); Urine Urobilinogen < 2.0 EU/DL (0.2-1.0); WBC,Urine 2 /HPF (0-6)
[2020-11-16 22:40] LABS: Barbiturates Screen,Urine Negative (Negative); Benzodiazepines Screen,Urine Negative (Negative); Cannabinoid Screen,Urine Negative (Negative); Opiate Screen,Urine Negative (Negative); Phencyclidine Screen,Urine Negative (Negative)
[2020-11-17 05:21] LABS: Basophils % 0.3 % (0.0-0.8); Eosinophils % 0.3 % (0.00-10.9); Hematocrit 30.1 VOL% (35.7-47.0); Hemoglobin 9.6 GM/DL (12.0-16.0); Immature Granulocytes % 0.3 %; Immature Granulocytes Absolute 0.03 #; Lymphocytes # 1.4 10*3/uL (1.4-4.0); Lymphocytes % 15.3 % (21.3-54.2); Mean Corpuscular HGB Conc 31.9 GM/DL (32-36); Mean Corpuscular Volume 90.7 FL (87-102); Mean Platelet Volume 12.3 FL (9.6-12.0); Monocytes % 12.8 % (1.7-12.7); Platelet Count 167 T/CUMM (130-400); Red Blood Count 3.32 MC/CUMM (3.8-5.5); Red Cell Distribution Width 13.8 % (9.3-17.3)
[2020-11-17 06:01] LABS: Free T4 (Free Thyroxine) 0.93 NG/DL (0.76-1.46); Thyroid Stimulating Hormone 3.63 uIU/ml (0.358-3.74)
[2020-11-17 06:04] LABS: Alanine Aminotransferase 19 U/L (13-56); Albumin 2.9 G/DL (3.4-5.0); Alkaline Phosphatase 65 U/L (45-117); Aspartate Amino Transferase 18 U/L (0-37); Bilirubin,Total < 0.39 MG/DL (0.2-1.0); Blood Urea Nitrogen 33 MG/DL (7-18); Calcium 8.6 MG/DL (8.5-10.1); Carbon Dioxide 19 MMOL/L (21-32); Estimated Glom Filtration Rate 30 ML/MIN; Glucose 98 MG/DL (74-106); Osmolality,Calculated 281.7 MOS/KG (273-304); Potassium 4.7 MMOL/L (3.5-5.1); Sodium 138 MMOL/L (136-145); Total Protein 5.9 G/DL (6.4-8.2)
[2020-11-17] MEDS: ACETAMINOPHEN 325 MG TABLET PO PRN (06:34)
[2020-11-17] MEDS ORDERED: DIAZEPAM 5 MG TABLET PO ONE (07:36)
[2020-11-17] MEDS ORDERED: diphenhydrAMINE CAP 25 MG CAPSULE PO ONE (07:36)
[2020-11-17] MEDS ORDERED: ceFAZolin 1,000 MG VIAL IRRIG ONE (07:36)
[2020-11-17] MEDS ORDERED: ceFAZolin 1,000 MG VIAL ONE (07:52)
[2020-11-17] MEDS ORDERED: LIDOCAINE 1% 20 ML VIAL ONE (07:52)
[2020-11-17] MEDS ORDERED: TISSUE ADHESIVE 1 EACH APPLICATOR TOP ONE (07:52)
[2020-11-17] MEDS ORDERED: CLOPIDOGREL 75 MG TABLET PO SCH (09:00)
[2020-11-17] MEDS ORDERED: NON-FORMULARY MEDICATION (Fluticasone-Umeclidin-Vilanter [Trelegy Ellipta] 100-62.5-25 mcg INH SCH (09:00)
[2020-11-17] MEDS ORDERED: MIDAZOLAM 2 MG/2 ML VIAL ONE ×2 (09:23→10:59)
[2020-11-17] MEDS ORDERED: fentaNYL 100 MCG/2 ML VIAL ONE (09:23)
[2020-11-17] MEDS ORDERED: PROMETHAZINE 25 MG/1 ML VIAL ONE (10:16)
[2020-11-17] MEDS: LOSARTAN 50 MG TABLET PO SCH ×2 (13:23→20:16)
[2020-11-17] MEDS: amLODIPine 5 MG TABLET PO SCH ×2 (14:51→20:17)
[2020-11-17] MEDS: GLIMEPIRIDE 2 MG TABLET PO SCH (15:47)
[2020-11-17] MEDS: MAGNESIUM CHLORIDE 64 MG TABLET PO SCH ×2 (17:21→18:02)
[2020-11-17] MEDS: ASPIRIN CHEW 81 MG TABLET PO SCH (17:55)
[2020-11-17] MEDS: CITALOPRAM 20 MG TABLET PO SCH (17:55)
[2020-11-17] MEDS: LEVOTHYROXINE 88 MCG TABLET PO SCH (17:56)
[2020-11-17] MEDS: PANTOPRAZOLE 40 MG TABLET PO SCH (17:56)
[2020-11-17] MEDS: ATORVASTATIN 40 MG TABLET PO SCH (20:17)
[2020-11-18] MEDS: ACETAMINOPHEN 325 MG TABLET PO PRN ×2 (02:28→18:21)
[2020-11-18 04:23] VITALS: BP 155/78
[2020-11-18 05:42] LABS: Basophils % 0.4 % (0.0-0.8); Eosinophils % 0.1 % (0.00-10.9); Hematocrit 27.7 VOL% (35.7-47.0); Hemoglobin 8.8 GM/DL (12.0-16.0); Immature Granulocytes % 0.6 %; Immature Granulocytes Absolute 0.06 #; Lymphocytes # 0.9 10*3/uL (1.4-4.0); Lymphocytes % 9.3 % (21.3-54.2); Mean Corpuscular HGB Conc 31.8 GM/DL (32-36); Mean Corpuscular Volume 91.1 FL (87-102); Mean Platelet Volume 12.3 FL (9.6-12.0); Monocytes % 11.4 % (1.7-12.7); Neutrophils % 78.2 % (38.7-73.9); Platelet Count 132 T/CUMM (130-400); Red Blood Count 3.04 MC/CUMM (3.8-5.5); White Blood Count 9.9 T/CUMM (4-12)
[2020-11-18 06:04] LABS: Calcium 8.3 MG/DL (8.5-10.1); Osmolality,Calculated 280.8 MOS/KG (273-304); Potassium 4.2 MMOL/L (3.5-5.1)
[2020-11-18] MEDS ORDERED: DEXTROSE 50% 25 GM/50 ML VIAL IV PRN (08:09)
[2020-11-18] MEDS ORDERED: GLUCAGON 1 MG VIAL IM PRN (08:09)
[2020-11-18] MEDS: ASPIRIN CHEW 81 MG TABLET PO SCH (09:40)
[2020-11-18] MEDS: MAGNESIUM CHLORIDE 64 MG TABLET PO SCH ×2 (09:40→18:21)
[2020-11-18] MEDS: LOSARTAN 50 MG TABLET PO SCH ×2 (09:40→21:37)
[2020-11-18] MEDS: LEVOTHYROXINE 88 MCG TABLET PO SCH (09:40)
[2020-11-18] MEDS: GLIMEPIRIDE 2 MG TABLET PO SCH (09:40)
[2020-11-18] MEDS: CITALOPRAM 20 MG TABLET PO SCH (09:41)
[2020-11-18] MEDS: amLODIPine 5 MG TABLET PO SCH ×2 (09:41→21:37)
[2020-11-18] MEDS: PANTOPRAZOLE 40 MG TABLET PO SCH (09:41)
[2020-11-18] MEDS: Fluticasone-Umeclidin-Vilanter [Trelegy Ellipta] 100-62.5-25 mcg INH SCH (09:42)
[2020-11-18] MEDS: carvediloL 6.25 MG TABLET PO SCH ×2 (09:50→21:37)
[2020-11-18] MEDS: ATORVASTATIN 40 MG TABLET PO SCH (21:37)
[2020-11-19 05:41] LABS: Basophils % 0.4 % (0.0-0.8); Eosinophils # 0.1 10*3/uL (0.0-0.87); Eosinophils % 0.8 % (0.00-10.9); Hematocrit 27.9 VOL% (35.7-47.0); Hemoglobin 8.9 GM/DL (12.0-16.0); Immature Granulocytes % 0.3 %; Immature Granulocytes Absolute 0.02 #; Lymphocytes # 0.9 10*3/uL (1.4-4.0); Lymphocytes % 11.7 % (21.3-54.2); Mean Corpuscular HGB Conc 31.9 GM/DL (32-36); Mean Corpuscular Volume 91.5 FL (87-102); Mean Platelet Volume 12.4 FL (9.6-12.0); Neutrophils % 72.8 % (38.7-73.9); Platelet Count 116 T/CUMM (130-400); Red Blood Count 3.05 MC/CUMM (3.8-5.5); Red Cell Distribution Width 13.8 % (9.3-17.3)
[2020-11-19 05:57] LABS: Calcium 8.2 MG/DL (8.5-10.1); Osmolality,Calculated 279.7 MOS/KG (273-304); Potassium 4.2 MMOL/L (3.5-5.1)
[2020-11-19] MEDS: LEVOTHYROXINE 88 MCG TABLET PO SCH (09:49)
[2020-11-19] MEDS: LOSARTAN 50 MG TABLET PO SCH (09:49)
[2020-11-19] MEDS: amLODIPine 5 MG TABLET PO SCH (09:49)
[2020-11-19] MEDS: PANTOPRAZOLE 40 MG TABLET PO SCH (09:50)
[2020-11-19] MEDS: GLIMEPIRIDE 2 MG TABLET PO SCH (09:50)
[2020-11-19] MEDS: CITALOPRAM 20 MG TABLET PO SCH (09:50)
[2020-11-19] MEDS: MAGNESIUM CHLORIDE 64 MG TABLET PO SCH (09:50)
[2020-11-19] MEDS: carvediloL 6.25 MG TABLET PO SCH (09:50)
[2020-11-19] MEDS: ASPIRIN CHEW 81 MG TABLET PO SCH (09:50)
[2020-11-19] MEDS: Fluticasone-Umeclidin-Vilanter [Trelegy Ellipta] 100-62.5-25 mcg INH SCH (09:54)
[2020-11-19] MEDS ORDERED: MAGNESIUM CHLORIDE 64 MG TABLET PO SCH (21:00)
== END 2020-11-19 13:03 | disposition home health service (06) | DRG 242 ==
LOC: EDBD → EDUNIT# → N.EDINP 13:48 → N.ED 13:48 → OBSVTOIN 14:23 → N.ICU 14:24
PROVIDERS: ADMIT Internal Medicine Cardiovascular Disease; ATTEND Internal Medicine Cardiovascular Disease